=== PATIENT | female | born 1960 | race Two or more races ===

== ENCOUNTER 2023-12-08 13:06 | Emergency (ER) | payer OTHER ==
[~2023-12-08] VITALS: Ht 172.7 cm; Wt 85.7 kg
[2023-12-08] MEDS ORDERED: IRBESARTAN-HCT1 EAC1 PO (13:38)
[2023-12-08] MEDS ORDERED: SYNTHROID88 MCG PO (13:39)
[2023-12-08] MEDS ORDERED: ROSUVASTATIN CA10 MG PO (13:39)
[2023-12-08] MEDS ORDERED: GUAIFENESIN/DEXTROMETHORPHAN 10ML BLIST.PACK PO ONE ×2 (16:00→16:08)
[2023-12-08] MEDS ORDERED: CETIRIZINE HCL 5 MG/5 ML ML PO ONE (16:00)
[2023-12-08] MEDS ORDERED: CETIRIZINE HCL 5MG/5ML BLIST.PACK PO ONE (16:08)
[2023-12-08 16:31] LABS: HEMATOCRIT 37.3 % (36.0-45.00); HEMOGLOBIN 12.9 g/dL (12.0-15.00); MEAN CELL VOLUME 86.8 fL (80.00-100.00); MEAN CORPUSCULAR HEMOGLOBIN 29.9 pg (27.00-32.0); MEAN CORPUSCULAR HGB CONC 34.5 g/dl (32.0-36.0); PLATELET COUNT 282 K/uL (150-450); RED CELL DISTRIBUTION WIDTH 13.8 % (11.5-14.5)
[2023-12-08] MEDS ORDERED: CHLORASEPTIC177 M2 BUCAL (19:58)
[2023-12-08] MEDS ORDERED: ZYRTEC10 MG PO (19:58)
== END 2023-12-08 20:47 ==
LOC: ER 13:08
PROVIDERS: Nurse Practitioner Family
DX: R09.82 Postnasal drip (principal); J06.9 Acute upper respiratory infection, unspecified; R53.81 Other malaise; R51.9 Headache, unspecified; Z20.822 Contact with and (suspected) exposure to COVID-19; I10 Essential (primary) hypertension; E03.8 Other specified hypothyroidism